=== PATIENT | male | born 1990 | race African-American/Black ===

== ENCOUNTER 2023-06-17 22:25 | Emergency (ER) | payer OTHER ==
[~2023-06-17] VITALS: Ht 188 cm; Wt 81.8 kg
[2023-06-17 22:47] VITALS: TEMP 98.1
[2023-06-17] MEDS ORDERED: BACITRACIN 0.9 GM PACKET OINTMENT TP ONE (23:00)
[2023-06-17] MEDS ORDERED: PERTUSS(ACELL),DIPH,TET VAC/PF 0.5 ML SYRINGE IM. ONE (23:00)
[2023-06-17] MEDS ORDERED: ACETAMINOPHEN 500 MG TABLET PO ONE (23:00)
[2023-06-18 01:21] VITALS: BP 131/70; PULSE 57; RESP 15
== END 2023-06-18 01:29 ==
LOC: EMS 22:28
DX: S63.615A Unspecified sprain of left ring finger, initial encounter (principal); S01.01XA Laceration without foreign body of scalp, initial encounter; Y08.89XA Assault by other specified means, initial encounter; Y93.89 Activity, other specified; Y92.89 Other specified places as the place of occurrence of the external cause; Y99.8 Other external cause status
CPT/HCPCS: 12004; 70450; 72125; 90471; 90715; 99285